=== PATIENT | female | born 1985 | race Caucasian/White ===

== ENCOUNTER 2020-10-01 11:12 | Inpatient (IN) | payer OTHER ==
[~2020-10-01] VITALS: Ht 149.9 cm; Wt 74.8 kg
--- NOTE | ~2020-10-01 | O ---
[facility] [place] [address] OPERATIVE REPORT Name: LUCIA CARBONE Room #: 458-P [facility] IN M.R.#: [id number] Admission: 10/01/20 Attend Phys: Zane Crum MD Discharge: Date of : 83 Report #: [id number] THIS REPORT FOR: cc: FAM - No family physician/PCP FAM - No family physician/PCP Juan Nash MD ~ DATE OF SERVICE: 10/04/2020 PREOPERATIVE DIAGNOSES: Left knee prepatellar bursitis with left lower extremity cellulitis. POSTOPERATIVE DIAGNOSES: Left knee prepatellar bursitis with left lower extremity cellulitis. PROCEDURE PERFORMED: Irrigation and debridement of left knee/lower extremity. SURGEON: Juan Nash MD PROGRAM SERVICES PLANNER: Chantel Ga PA-C. ANESTHESIA: General. FLUIDS: 550 mL crystalloid. ESTIMATED BLOOD LOSS: Approximately 25 mL. DESCRIPTION OF PROCEDURE: After proper identification of the patient and operative site in preoperative holding area, the operative site was signed by myself. Prophylactic antibiotics given. The patient had noted continued clinical improvement in the left lower extremity, but still had diffuse cellulitis in the thigh extending over the more proximal leg. A small punctate lesion of approximately 3 mm width was noted on the anterior knee and between the patella and the tibial tubercle. No knee effusion was noted and persistent drainage was appreciated from her puncture wound. The patient was brought back to the operative suite after discussing her anesthetic choice with anesthesia. After induction of satisfactory general anesthesia, the left lower extremity was elevated. Tourniquet was applied to the leg, but not utilized during this procedure and then the left lower extremity was sterilely prepped and draped in the usual manner. At this point, the punctate wound was enlarged. The skin around this area was carefully debrided. Subcutaneous tissue plane was easily developed with a hemostat and there was no perforation of this into the knee joint itself and the subcutaneous tissues both proximal and distal to this area could be opened with the curved hemostat along the more superior lateral aspect of the knee area. An additional skin incision of approximately 1 cm was created ____ area of some firmness of the cellulitis and this area was irrigated [address] [address] OPERATIVE REPORT Name: HARINI CARBONEHA Room #: 458-P [facility] IN M.R.#: [id number] Admission: 10/01/20 Attend Phys: Zane Crum MD Discharge: Date of : 83 Report #: [id number] thoroughly and the subcutaneous tissues were loosened with the hemostat. This allowed for additional purulent debris to be removed in this area and Asepto syringes were utilized to irrigate these wounds and it was allowed to pass out the other open incision while the soft tissues were massaged to help debride and loosen up any collection of devitalized tissue or pockets of fluid associated with her cellulitic infection. After several liters of fluid was ran through this area, there appeared to be just clear fluid with no signs of purulence is noted initially and the soft tissues felt much less indurated, a 3/8 inch Anton drain was placed through these incisions and into the subcutaneous tissue, which will be planned to be left for several days. A portion of the incision was closed where the punctate wound was. A bulky absorptive dressing overwrapped with Ted bandage was then applied and she will be subsequently awakened and transferred to the recovery room ____ in stable condition. By: 0810 0827 Juan Nash MD /nt
[2020-10-01 11:17] VITALS: BP 136/81
[2020-10-01 11:40] LABS: URINE BLOOD 3+ (Negative); URINE CLARITY CLOUDY; URINE COLOR BROWN; URINE GLUCOSE-RANDOM* NEGATIVE (Negative); URINE KETONES TRACE (Negative); URINE LEUKOCYTES-REFLEX TRACE (Negative); URINE PROTEIN (DIPSTICK) 2+ (Negative); URINE SPECIFIC GRAVITY 1.025 (1.005-1.035)
[2020-10-01 11:42] LABS: URINE NITRITE-REFLEX POSITIVE (Negative)
[2020-10-01 11:43] LABS: ICTOTEST (BILI CONFIRMATORY) Negative (Negative); URINE BILIRUBIN NEGATIVE (Negative)
[2020-10-01 11:55] LABS: SQUAMOUS 0-3 Few /LPF (0-3)
[2020-10-01 11:56] LABS: CASTS None Seen /LPF (None Seen); CRYSTALS None Seen /LPF (None Seen); MUCUS 4-6 Moderate strn/LPF (None Seen)
[2020-10-01 11:58] LABS: BACTERIA-REFLEX >30 Many /HPF (None Seen); URINE RBC >20 Many /HPF (0-2)
[2020-10-01 11:59] LABS: URINE WBC-REFLEX 0-5 Rare /HPF (0-5)
[2020-10-01 13:09] LABS: ABSOLUTE NEUTROPHILS 10.5 thou/uL (1.4-8.2); BASOPHILS 0.4 % (0.0-2.0); EOSINOPHILS 0.9 % (0.0-3.0); HEMATOCRIT 39.6 % (37.0-47.0); HEMOGLOBIN 12.8 gm/dL (12.0-15.0); LYMPHOCYTES 8.4 % (24.0-44.0); MCH 29.5 pg (26.0-34.0); MCHC 32.4 g/dL (28.0-37.0); MCV 90.9 fL (80.0-100.0); MONOCYTES 7.7 % (1.0-8.0); PLATELET COUNT 280 thou/uL (150-400); POLYS 82.6 % (36.0-66.0); RBC 4.35 mil/uL (4.20-5.00); WBC 12.7 thou/uL (4.0-11.0)
[2020-10-01 13:25] LABS: ALBUMIN 2.9 g/dL (3.4-5.0); CALCIUM 8.8 mg/dL (8.5-10.1); CREATININE 1.1 mg/dL (0.6-1.0); DIRECT BILIRUBIN 0.2 mg/dL (<0.1-0.2); TOTAL BILIRUBIN 0.4 mg/dL (0.2-1.0); TOTAL PROTEIN 7.5 g/dL (6.4-8.2)
[2020-10-01 13:33] LABS: POTASSIUM 2.8 mmol/L (3.5-5.1)
[2020-10-01 15:04] VITALS: BP 136/81
--- NOTE | 2020-10-01 16:53 | NUR ---
ATTEMPTED TO CALL REPORT TO UNIT, NO ANSWER HANDOFF TOOL SENT AT 7353
[2020-10-01 17:10] VITALS: BP 135/80
[2020-10-01 20:07] VITALS: BP 105/59
[2020-10-01 20:45] LABS: FOLIC ACID 9.1 ng/mL (8.6-58.9)
--- NOTE | 2020-10-01 20:58 | NUR ---
PT CARE ASSUMED FROM ER AT 1759. A&Ox4. CONSULTS CALLED. ORTHO WILL SEE PT IN THE AM. ID HAS SEEN PT AND SO HAS WOUND. NICOTINE PATCH PLACED ON L. ARM. IV PATENT WITH NO REDNESS OR EDEMA, FLUIDS INFUSING. NPO AFTER MIDNIGHT. K 2.8. ONE TIME DOSE GIVEN. PT NOT A GOOD HISTORIAN AND GIVES CONFUSSING ANSWERS DURING ADMISSION. DRESSING APPLIED OVER WOUND. ADMISSION PICTURES TAKEN. VITALS STABLE. FALL PROTOCOL IN PLACE. CALL LIGHT IN REACH. REPORT GIVEN TO RAHEEM.
[2020-10-02 03:34] VITALS: BP 117/66
[2020-10-02 06:12] LABS: HEMATOCRIT 33.5 % (37.0-47.0); HEMOGLOBIN 11.1 gm/dL (12.0-15.0); MCV 90.8 fL (80.0-100.0); RBC 3.69 mil/uL (4.20-5.00); RDW 15.5 % (10.5-14.5); WBC 10.1 thou/uL (4.0-11.0)
[2020-10-02 06:27] LABS: CALCIUM 7.9 mg/dL (8.5-10.1); CREATININE 0.7 mg/dL (0.6-1.0); POTASSIUM 3.7 mmol/L (3.5-5.1)
--- NOTE | 2020-10-02 07:05 | NUR ---
ASSUMED PT CARE FORM THE DAY NURSE (MARCIN). PT IS A&OX4. PT HAS A RIGHT AC. PERFORMED DRESSING CHANGE AT THE BEGINING OF THE SHIFT. PT IS ABLE TO MAKE HER NEEDS KNOWN. PT HAS FLUIDS GOING AT [address] WORTHY. VERBAL ORDERS GIVEN. CHECKED THE PT'S TEMP AND IT WAS 100.2. RECTAL TYLENOL ORDERED AND CONFIRMED WITH THE PHARMACY. PT COMPLAINS OF THE IV PAIN MEDICATION NOT WORKING SO PAIN MEDS WERE CHANGED TO MORPHINE. PT HAS BEEN NPO SINCE 0000. FREQUENT CHECKS DONE ON PT.
[2020-10-02 08:20] VITALS: BP 129/73
--- NOTE | 2020-10-02 09:26 | NUR ---
ASSESSMENT: CM REVIEWED CHART AND SPOKE WITH PT. PT WAS ADMITTED DUE TO A FALL COMPLAINING OF KNEE PAIN, UTI, AND CELLULITIS. 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 PT STATES SHE CURRENTLY HAS NO INSURANCE OR PCP. CM PROVOIDED PATIENT WITH CRITICAL ACCESS HOSPITAL CLINIC INFORMATION AND HEALTH RESOURCE PACKET. PT REPORTS SHE HAS NO HX OF HH. PT REPORTS LIVING IN A HOUSE WITH ROOMATES. PT REPORTS NO DME AND IS FULLY IN DEPEND[employer]. PT REPORTS 2 STEPS TO ENTER AND A FULL FLIGHT OF STEPS TO HER BEDROOM. CM WILL CONTINUE TO FOLLOW ASSIST NEEDED. GENERAL SURGERY HAS BEEN CONSULTED WELL ID.
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
--- NOTE | 2020-10-02 13:12 | NUR ---
Pt with knee infection. Viist during lunch, ate very well. able to order own meals and aware of high protein food choices. Pt is at low nutrition risk
--- NOTE | 2020-10-02 14:00 | NUR ---
PT TRANSFERRED TO [facility] AT THIS TIME. REPORT GIVEN TO ED HAJI
--- NOTE | 2020-10-02 14:19 | NUR ---
PT ASSESSED AT START OF SHIFT. ORTHO IN THIS AM AND STATED PT WILL GO FOR SURGICAL WASHOUT AFTER COUPLE DAYS OF ANTIBIOTICS. LT KNEE DSNG CHANGED DRAINAGE SS AND LESS PURULENT. PT TRANSFERRING SELF TO BSC NEXT TO BED AND NOT BEARING JOEL WT ON LT. C/O PAIN IN RT KNEE WELL AND WILL HAVE XRAYS PER ORTHO. EATING AND DRINKING WELL.
[2020-10-02 14:20] VITALS: BP 120/80
--- NOTE | 2020-10-02 14:30 | NUR ---
PT TRANSFERRED FROM TO THIS UNIT APPROX 1415. PT A&OX4, VSS, DENIES PAIN AT THIS TIME. PATIENT ON ROOM AIR, MEDSURG. PATIENT RESTING IN BED. IV PATENT RIGHT AC WITH FLUIDS RUNNING. LEFT LEG DRESSING C/D/I. NO SIGNS OF DISTRESS. WILL CONTINUE TO MONITOR.
[2020-10-02 19:53] VITALS: BP 126/75
--- NOTE | 2020-10-03 02:58 | NUR ---
Assumed pt care at 1900. A/OX4,VSS. C/o pain to Left knee/hip and back medicated per EMAR with some relief reported. Pt reported cigarettes craving and wanted a new nicotine patch or inclement in dosage;RENO Villatoro notified n.o for Xanax given and pt agreeable with it. Pt is up to BSC independently. Left knee/thigh red,tender and warm to touch, dsg C/D/I. Pt encouraged to call for help as needed and doing so. Will continue to monitor pt.
[2020-10-03 07:52] VITALS: BP 127/83
[2020-10-03 17:48] VITALS: BP 116/74
[2020-10-03 19:20] VITALS: BP 122/68
--- NOTE | 2020-10-03 19:52 | NUR ---
PT A&OX4, VSS, PAIN IN LEFT LEG. PATIENT ROOM AIR, MED SURG. PATIENT HAS ORDERS TO BE NPO AFTER MIDNIGHT FOR SURGERY ON LEFT KNEE WOUND. MEDICATION GIVEN ORDERED. PATIENT HAS TWO LOOSE STOOLS TODAY, IMODIUM ORDERED. STOOLS WERENT WATERY AND DIDNT HAVE CDIFF SMELL, NO MUCUS EITHER. DRESSING CHANGE TO LEFT KNEE DONE, PURULENT DRAINAGE. PATIENT HAS NICOTINE PATCH AND WOULD LIKE CHANTEX, DOCTOR AWARE. NO SIGNS OF DISTRESS. WILL CONTINUE TO MONITOR.
[2020-10-04] VITALS (7 sets, daily range): BP systolic 128–140; BP diastolic 75–86
--- NOTE | 2020-10-04 04:49 | NUR ---
PT IS A/O X4 AND IS UP WITH SBA TO THE BR. C/O PAIN TO LEFT KNEE. PRN PAIN MEDICATION GIVEN DIRECTED. WOUND CARE COMPLETED AND CURRENT DRSG IS C/D/I. NPO AWAITING PROCEDURE THIS DAY. AT THIS TIME, PT IS LYING IN HER BED AND APPEARS TO BE SLEEPING. WILL CONTINUE TO MONITOR.
--- NOTE | 2020-10-04 12:18 | NUR ---
PT HAD I&D DONE THIS DAY. CM FOLLOWED UP WITH PT OVER THE PHONE THIS AFTERNOON. SHE INDICATED THAT SHE HAS ROOMMATES THAT WILL BE ABLE TO ASSIST HER WITH HER DRESSING CHANGES UPON DC. PT INDICATED SHE WILL BE ABLE TO PAY TO FILL ANY MEDICATIONS SHE MIGHT NEED UPON DISCHARGE. PT AND OT TO ASSESS PT. PT PLANS TO RETURN HOME WITH ORAL ABX AND WOUND CARE SUPPLIES ONCE MEDICALLY STABLE. CM TO FOLLOW INDICATED WITH DC PLANNING.
--- NOTE | 2020-10-04 14:39 | NUR ---
Patient at OR during shift change. Back to room s/p I&D at 1000; transferred to room safely. Vital signs stable. On MS, not on telemetry; no complains and signs of chest pain, crushing sensation and heaviness. Assisted in ADLs. On room air. Continent of bowel and bladder, able to use bedside commode- standby assist and gait belt. Falls bundle in place. Post op dressing at L leg- C/D/I in place; ice packs on; kept elevated. With Ns at 75cc/hr, infusing well at R FA. Complained of pain, PRN meds given as prescribed.
--- NOTE | 2020-10-05 03:21 | NUR ---
ASSESSED AT START OF SHIFT 1900. PT C/O PAIN IN LEFT KNEE. PO AND IV PAIN MED GIVEN. DRESSING IN LEFT KNEE C/D/I. PT UP WITH SBA TO THE BSC. WALKED THE UNIT THIS SHIFT. NIGHT TIME SNACKS PROVIDED. ANXIETY MED PROVIDED. IV INTACT AND FLUIDS INFUSING, ABX GIVEN.
[2020-10-05 04:00] VITALS: BP 106/64
[2020-10-05 09:36] VITALS: BP 116/72
--- NOTE | 2020-10-05 11:20 | NUR ---
Received awake on bed. Due medication given as prescribed, able to swallow meds w/o difficulty. On room air. Vital signs stable. On MS, not on telemetry; no complains and signs of chest pain, crushing sensation and heaviness. On regular diet, tolerating well; no nausea, no vomiting and no abdominal pain noted. Continent of bowel and bladder, able to use bedside commode with standby assist. With NS at 75cc/hr, infusing well at R FA; with SL at R UA. Post op dressing C/D/I, NVS intact; kept elevated. To continue monitoring patient. Patient seen and examined by Dr Espinoza this AM, a/w cultures. Complained of anxiety, PRN medications given as prescribed. Visited by relative today- update given.
[2020-10-05 18:29] VITALS: BP 121/75
[2020-10-05 20:03] VITALS: BP 137/94
--- NOTE | 2020-10-06 00:58 | NUR ---
ASSESSED AT START OF SHIFT 1900. PT A&OX4. C/O PAIN IN LEFT LEG. PO AND IV PAIN MEDS GIVEN. IV INTACT AND ABX GIVEN. PT UP TO BSC. FALL PREC IN PLACE. PT REQUESTED FOR ANXIETY MEDS. XANAX GIVEN. LEFT KNEE ELEVATED ON PILLOW. CALL LIGHT AT REACH AND WILL CONT TO MONITOR.
[2020-10-06 07:30] VITALS: BP 123/81
[2020-10-06 16:10] VITALS: BP 127/85
[2020-10-06 19:59] VITALS: BP 128/72
[2020-10-07 04:44] VITALS: BP 126/86
--- NOTE | 2020-10-07 04:47 | NUR ---
PT AOX4. PT REPORTS PAIN IN LLE AND HEADACHE. PT DENIES SOB WHILE ON ROOM AIR. PT RECEIVING PRN PO NORCO Q4HR. PT REPORTS INCREASING ANXIETY WHILE WAITING FOR PRN PO XANAX Q8HR TO BE AVAILABLE TO BE GIVEN. PT EXPRESSES CONCERN WITH HAVING MIGRAINE, USING CAFFEINE IN THE PAST WITH POSITIVE EFFECT. ONCALL LIFESTYLE BLOCK FARMER NOTIFIED, EMAR UPDATED. PT GIVEN ONETIME NORCO, RECEIVING PRN PO FIORICET Q4HR WITH PRN PO HALDOL TID AVAILABLE. PT TOLERATING PO INTAKE OF FLUIDS AND REGULAR DIET WITHOUT ISSUE. PT WITHOUT NAUSEA OR EMESIS. PT AMBULATING INDEPENDENTLY IN ROOM AND TO BEDSIDE COMMODE, RESTING IN BED OTHERWISE, NOTED TO SHIFT INDEPENDENTLY. LLE DRESSING REMAINS INTACT WITH SCANT DRAINAGE THROUGHOUT SHIFT. PT ENCOURAGED TO NOTIFY STAFF FOR ALL NEEDS, CALL LIGHT WITHIN REACH, BED LOCKED IN LOWEST POSITION, FREQUENT MONITORING WILL CONTINUE.
[2020-10-07 07:15] VITALS: BP 120/72
[2020-10-07] MEDS ORDERED: HYDROCODON-ACE1 EAC7 PO (09:56)
[2020-10-07] MEDS ORDERED: AMOX TR-K CLV1 EAC4 PO (12:44)
[2020-10-07 12:48] VITALS: BP 120/72
[2020-10-07 12:49] VITALS: BP 120/72
--- NOTE | 2020-10-07 12:51 | NUR ---
ON-GOING ASSESSMENT: CM REVIEWED CHART. PER ID NOTE FROM TODAY THEY ARE RECOMMENDING TRANSITION TO ORAL ANBX. PT HAS NO INSURANCE BUT IS WORKING AND REPORTS SHE WILL BE ABLE TO AFFORD HER MEDICATIONS/SUPPLIES. CM SPOKE WITH [facility] WHO HAS AGREED TO OFFER HER 2 SYDNEY VISITS FROM A RN AND ONE SYDNEY VISIT FROM PHYSICAL THERAPY. PT IS AGREEABLE. CM ALSO PROVIDED PATIENT WITH CONTACT FOR [employer], [facility], AND [facility] FOR FOLLOW UP RESOURCES. PT WAS ALSO GIVEN A WALKER VOUCHERED BY CM DEPT (WITH APPROVAL OF DIRECTOR) BY PROVIDER [employer]US. PT REPORTS SHE HAS NO FURTHER QUESTIONS. PT WILL LIKELY BE DISCHARGED LATER TODAY.
[2020-10-07] MEDS ORDERED: COLACE100 MG PO (15:39)
[2020-10-07 16:46] VITALS: BP 120/72
--- NOTE | 2020-10-07 17:10 | NUR ---
PT ASSESSED AT START OF SHIFT. TAKING PAIN PILLS FOR LT KNEE WOUND/INFECTION. AMBULATING WELL USING WALKER. SMALL INCISIONS COVERED W/ GAUZE BORDER PER WOUND CARE NURSE. DR. SUE IN TO EXAMINE PT. DISCHARGED AT THIS TIME. W/ ALL BELONGINGS. WILL F/U W/ DR. HINOJOSA IN ONE WEEK. WILL HAVE COMPLIMENTARY HOME HEALTH VISITS.
== END 2020-10-07 17:39 | disposition home health service (06) | DRG 464 ==
LOC: ER 11:12 → EROBS 15:00 → 4S 17:12 → 4W 10-02 14:14 → 4S 10-04 15:43
PROVIDERS: Nurse Practitioner; ADMIT Surgery; ATTEND Surgery
PROC: 0JBP0ZZ Excision of Left Lower Leg Subcutaneous Tissue and Fascia, Open Approach (ICD-10-PCS; principal; 2020-10-04)
DX: M70.42 Prepatellar bursitis, left knee (principal); L03.116 Cellulitis of left lower limb; N39.0 Urinary tract infection, site not specified; E46 Unspecified protein-calorie malnutrition; S81.032A Puncture wound without foreign body, left knee, initial encounter; X58.XXXA Exposure to other specified factors, initial encounter; F17.210 Nicotine dependence, cigarettes, uncomplicated; B18.2 Chronic viral hepatitis C; B19.20 Unspecified viral hepatitis C without hepatic coma; B96.20 Unspecified Escherichia coli [E. coli] as the cause of diseases classified elsewhere; E87.6 Hypokalemia; Z20.822 Contact with and (suspected) exposure to COVID-19; B95.0 Streptococcus, group A, as the cause of diseases classified elsewhere; Y93.89 Activity, other specified; Z68.33 Body mass index [BMI] 33.0-33.9, adult; Y92.89 Other specified places as the place of occurrence of the external cause; Y99.8 Other external cause status
CPT/HCPCS: 10047; 10102; 50010; 50101; 50386; 56525; 57091; 57103; 57180; 62110; 62900; 70005